=== PATIENT | female | born 1985 ===

== ENCOUNTER 2016-11-04 19:07 | Emergency (ER) | payer SELFPAY ==
--- NOTE | 2016-11-04 19:57 | UC ---
Jamil Multani SooYoung, scribed for Sathish Mistry MD on 11/04/16 at 1943 . Complaint Female HPI - HPI Summary HPI Summary: A 31 y/o F presents to E with c/o vaginal bleeding onset three hours ago. She states about 2 light pads worth. Associated sx: suprapubic abd pain onset earlier in the AM but then increasing in the afternoon; malaise; lower back pain. Denies dizziness. Pt had a positive home . First , not scheduled to see OB-SAFETY LEADER until November 14. LNMP was September 26. Denies PMHx. Non -smoker, non drinker. - History Of Current Complaint Chief Complaint: UCGU Stated Complaint: BLEEDING,CRAMPING,5 WEEKS PREG Time Seen by Provider: 11/04/16 19:41 Hx Obtained From: Patient, Family/Critical Care Unit Manager - Hx Last Menstrual Period: 09/26/16 ?: Yes Onset/Duration: Sudden Onset, Lasting Hours, Still Present Timing: Constant Severity Initially: Moderate Severity Currently: Moderate Pain Intensity: 5 Pain Scale Used: 0-10 Numeric Associated Signs And Symptoms: Positive: Back Pain - lower, Vaginal Bleeding/ Discharge - Allergies/Home Medications Allergies/Adverse Reactions: Allergies Allergy/AdvReac Type Severity Reaction Status Date / Time No Known Allergies Allergy Verified 11/04/16 19:33 Home Medications: Home Medications Ibuprofen [Midol] 11/04/16 [History] PMH/Surg Hx/FS Hx/Imm Hx Previously Healthy: No - NEG COPD, DENIES PMHX. - Surgical History Surgical History: Yes Surgery Procedure, Year, and Place: Varicose veins - Family History Known Family History: Positive: Cardiac Disease Negative: Hypertension, Diabetes - Social History Occupation: Unemployed Lives: With Family Alcohol Use: None Substance Use Type: None Smoking Status (MU): Never Smoked Tobacco Review of Systems Gastrointestinal: Abdominal Pain, Other - pos: vaginal bleeding Musculoskeletal: Other: - pos: lower back pain All Other Systems Reviewed And Are Negative: Yes Physical Exam Triage Information Reviewed: Yes Vital Signs: Initial Vital Signs Temp 99.1 F 11/04/16 19:29 Pulse 91 11/04/16 19:29 Resp 18 11/04/16 19:29 BP 126/83 11/04/16 19:29 Pulse Ox 100 06/02/17 19:29 Vital Signs Reviewed: Yes - Additional Comments The patient is well-nourished in no acute distress and in no acute pain. The skin is warm and dry and skin color reflects adequate perfusion. NOT DIAPHORETIC. HEENT: The head is normocephalic and atraumatic. The pupils are equal and reactive. The conjunctivae are clear and without drainage. Nares are patent and without drainage. Mouth reveals moist mucous membranes and the throat is without erythema and exudate. The external ears are intact. The ear canals are patent and without drainage. The tympanic membranes are intact. Neck is supple with full range of motion and non-tender. There are no carotid bruits. There is no neck vein distension. Respiratory: Chest is non-tender. Lungs are clear to auscultation and breath sounds are symmetrical and equal. Cardiovascular: Hear is regular rate and rhythm. There is no murmur or rub auscultated. There is no peripheral edema and pulses are symmetrical and equal. Abdomen: SUPRAPUBIC TENDERESS. The abdomen is soft. There are normal bowel sounds heard in all four quadrants and there is no organomegaly palpated. : VAGINAL BLEEDING. POSITIVE . Musculoskeletal: Extremities are non-tender with full range of motion. There is good capillary refill. There is no peripheral edema or calf tenderness elicited. Neurological: Patient is alert and oriented to person, place and time. The patient has symmetrical motor strength in all four extremities. Cranial nerves are grossly intact. Deep tendon reflexes are symmetrical and equal in all four extremities. Psychiatric: The patient has an appropriate affect and does not exhibit any anxiety or depression. Complaint Female Dx - Course Course Of Treatment: Pt medications reviewed during this visit. Pre- Hypertensive BP reading (121-139/81-89); patient referred to PCP for follow-up. - Differential Dx/Diagnosis Provider Diagnoses: vaginal bleeding. history of Discharge - Discharge Plan Condition: Stable Disposition: AGAINST MEDICAL ADVICE Additional Instructions: Your blood pressure reading today was 126/83, which is PRE-HYPERTENSIVE. Follow- up with your primary care provider within 4 weeks for blood pressure readings and further evaluation. If no PCP listed: Establish with a new primary care provider and follow-up within 4 weeks for blood pressure readings and further evaluation. If you cant find a provider, try to check your blood pressure on your own and see if its above 120/80. If so, follow up for further evaluation and treatment. The documentation as recorded by the Jamil campo SooYoung accurately reflects the service I personally performed and the decisions made by me, Sathish Mistry MD.
[2016-11-04 20:20] VITALS: BP 129/83
== END 2016-11-04 20:18 | disposition left against medical advice (07) ==
LOC: UCEAST 19:07
DX: O46.91 Antepartum hemorrhage, unspecified, first trimester (principal); Z3A.00 Weeks of gestation of pregnancy not specified; R03.0 Elevated blood-pressure reading, without diagnosis of hypertension
CPT/HCPCS: 84702; 99202; G0463

== ENCOUNTER → 2016-11-04 20:33 | Emergency (ER) | payer SELFPAY ==
[2016-11-04 21:30] LABS: Hematocrit 38 % (35-47); Mean Corpuscular HGB Conc 34 g/dl (31-36); Mean Corpuscular Hemoglobin 32 pg (27-31); Mean Corpuscular Volume 94 fL (80-97); Mean Platelet Volume 7 um3 (7.4-10.4); Red Blood Count 4.11 10^6/ul (4.0-5.4); Red Cell Distribution Width 13 % (10.5-15); White Blood Count 10.6 10^3/ul (3.5-10.8)
--- NOTE | 2016-11-04 22:16 | ED ---
- HPI Summary HPI Summary: Patient present with vaginal spotting and abdominal cramping that began today. She is 5 weeks and presented to [facility] where her urine was positive. She was referred to the ED for evaluation. This is her first . She denies back pain, urinary symptoms, constipation, N/V/D or fevers. - History of Current Complaint Chief Complaint: EDOBProblems Stated Complaint: 5 WKS PRG/BLEEDING Time Seen by Provider: 11/04/16 20:48 Hx Obtained From: Patient, Family/Aerobics Instructor Chief Complaint: Vaginal Bleeding Onset/Duration: Started Hours Ago, Atraumatic, Still Present Timing: Intermittent Severity: Moderate Current Severity: Moderate Pain Intensity: 5 Location of Pain: Suprapubic Character: Cramping Aggravating Factors: Nothing Alleviating Factors: Nothing Associated Signs and Symptoms: Positive: Vaginal Bleeding or Discharge - spotting - Assessment SAB: 0 IEA: 0 Hx Hysterectomy: No - Allergies/Home Medications Allergies/Adverse Reactions: Allergies Allergy/AdvReac Type Severity Reaction Status Date / Time No Known Allergies Allergy Verified 11/04/16 19:33 PMH/Surg Hx/FS Hx/Imm Hx Previously Healthy: Yes - Surgical History Surgery Procedure, Year, and Place: Varicose veins Infectious Disease History: No Infectious Disease History: Denies: Traveled Outside the [place] in Last 30 Days - Family History Known Family History: Positive: Cardiac Disease Negative: Hypertension, Diabetes - Social History Occupation: Employed Full-time Lives: With Family Alcohol Use: None Substance Use Type: Reports: None Smoking Status (MU): Never Smoked Tobacco Review of Systems Positive: Abdominal Pain Positive: discharge - blood spotting All Other Systems Reviewed And Are Negative: Yes Physical Exam - Physical Exam Triage Information Reviewed: Yes Vital Signs Reviewed: Yes Appearance: Positive: Well-Appearing, No Pain Distress, Well-Nourished Skin: Positive: Warm, Skin Color Reflects Adequate Perfusion, Dry, Soft Head/Face: Positive: Normal Head/Face Inspection Eyes: Positive: EOMI, MAUREEN, Conjunctiva Clear ENT: Positive: Hearing grossly normal Respiratory/Lung Sounds: Positive: Clear to Auscultation, Breath Sounds Present Cardiovascular: Positive: RRR Abdomen Description: Positive: Nontender, Soft. Negative: CVA Tenderness (R), CVA Tenderness (L), Distended, Guarding Bowel Sounds: Positive: Present Musculoskeletal: Negative: Edema Left, Edema Right Neurological: Positive: Sensory/Motor Intact, Alert, Oriented to Person Place, Time, NV Bundle Intact Distally, Normal Gait Psychiatric: Positive: Affect/Mood Appropriate AVPU Assessment: Alert Diagnostics - Vital Signs Vital Signs Temp Pulse Resp BP Pulse Ox 11/04/16 20:54 86 100 11/04/16 20:53 98.5 F 77 20 115/72 77 11/04/16 20:34 98 F 88 18 115/80 100 - Laboratory Lab Results: Lab Results 11/04/16 11/04/16 11/04/16 Range/Units 21:10 21:10 21:10 WBC 10.6 (3.5-10.8) 10^3/ul RBC 4.11 (4.0-5.4) 10^6/ul Hgb 13.0 (12.0-16.0) g/dl Hct 38 (35-47) % MCV 94 (80-97) fL MCH 32 H (27-31) pg MCHC 34 (31-36) g/dl RDW 13 (10.5-15) % Plt Count 273 (150-450) 10^3/ul MPV 7 L (7.4-10.4) um3 Neut % (Auto) 70.3 (38-83) % Lymph % (Auto) 19.7 L (25-47) % Grundy % (Auto) 9.9 H (1-9) % Eos % (Auto) 0 (0-6) % Baso % (Auto) 0.1 (0-2) % Absolute Neuts (auto) 7.4 (1.5-7.7) 10^3/ul Absolute Lymphs (auto) 2.1 (1.0-4.8) 10^3/ul Absolute Monos (auto) 1.0 H (0-0.8) 10^3/ul Absolute Eos (auto) 0 (0-0.6) 10^3/ul Absolute Basos (auto) 0 (0-0.2) 10^3/ul Absolute Nucleated RBC 0.01 10^3/ul Nucleated RBC % 0 Beta HCG, Quant 173.98 mIU/mL Blood Type A Positive Result Diagrams: 11/04/16 21:10 Lab Statement: Any lab studies that have been ordered have been reviewed, and results considered in the medical decision making process. - Ultrasound No standard instances Ultrasound Interpretation: Positive (See Comments) Ultrasound Interpretation Completed By: Radiologist - no intrauterine Course/Dx - Differential Diagnosis/HQI/PQRI: Incomplete , Missed , Spontaneous , Threatened , Ectopic , Pre-term Labor, Retained Products of Conception, Vaginal Bleeding - Diagnoses Provider Diagnoses: Vaginal bleeding in patient at less than 20 weeks gestation - Provider Notifications Discussed Care Of Patient With: Dr. Vasquez Time Discussed With Above Provider: 23:20 Instructed by Provider To: Have Pt Call For Appt. Discharge - Discharge Plan Condition: Stable Disposition: HOME Patient Education Materials: First Trimester Vaginal Bleed (ED) Referrals: Hector Ivy MD [Medical Doctor] - Additional Instructions: Please call Dr. Ivy's office Monday morning to discuss today's findings and to get repeat labs draw. Return to the emergency department if symptoms worsen.
--- NOTE | 2016-11-04 23:01 | RAD ---
HISTORY: Vaginal bleeding, COMPARISONS: None TECHNIQUE: Multiple transverse and longitudinal ultrasound images were obtained of the pelvis using grayscale and color Doppler imaging using the endovaginal transducer. FINDINGS: UTERUS: The uterus is normal in shape, size, contour, and echotexture. ENDOMETRIUM: The endometrium is heterogeneous. No intrauterine gestation is identified.. The endometrium measures 1.3 cm in thickness. CUL-DE-SAC: There is no free fluid within the cul-de-sac. RIGHT OVARY: The right ovary measures 1.9 x 2.3 x 2.4 cm. LEFT OVARY: The left ovary measures 2.3 x 2.6 x 2.2 cm. There is a minimally complicated left ovarian cyst measuring 1.4 cm, without hyperemia. BLADDER: The bladder is not well visualized. IMPRESSION: 1. NO INTRAUTERINE GESTATION IS IDENTIFIED. THE DIFFERENTIAL INCLUDES MISSED , EARLY INTRAUTERINE GESTATION, OR ECTOPIC . RECOMMEND CORRELATION WITH SERIAL BETA-HCG LEVELS AND FOLLOW-UP EXAMINATION. 2. MINIMALLY COMPLICATED LEFT OVARIAN CYST. 3. HETEROGENEOUS ENDOMETRIUM
[2016-11-04 23:34] VITALS: BP 104/68
== END | disposition home or self-care (01) ==
LOC: ED 20:33
DX: O46.91 Antepartum hemorrhage, unspecified, first trimester (principal); Z3A.01 Less than 8 weeks gestation of pregnancy
CPT/HCPCS: 36415; 76817; 84702; 85025; 86900; 86901; 99283

== ENCOUNTER 2017-11-07 06:02 | Inpatient (IN) | payer OTHER ==
--- NOTE | 2017-11-06 17:11 | HP ---
General Information - General Information Maternal Age: 32 Grav: 2 Para: 0 SAB: 1 IEA: 0 Estimated Due Date: 11/06/17 Determined By: LMP Gestational Age in Weeks and Days: 40 Weeks and 0 Days Maternal Blood Type and Rh: A Positive - Results this Serology/RPR Result: Non-Reactive Rubella Result: Immune HBsAg Result: Negative HIV Result: Negative GBS Culture Result: Negative Past Medical History Delivery History: See Records Pertinent Past Medical History: See Records Past Medical History Comment: Migraine Headaches Pertinent Past Surgical History: None Pertinent Family History: See Records - Antepartal Records Antepartal Records: Reviewed, Complicated by: - Persisitent Breech presentation Review of Systems Constitutional: Comfortable CV Complaint: No Respiratory: Shortness of Breath: No Gastrointestinal: No Nausea/Vomiting, Normal Bowel Movement Genitourinary: No Dysuria, No Bleeding, No Leaking Fluid Musculoskeletal: No Complaint Neurological: No Headache, No Visual Changes Movement: Normal Exam Allergies/Adverse Reactions: Allergies No Known Allergies Allergy (Verified 11/04/16 19:33) Temp 98.6 P-72 BP 110/60 RR 18 - Measurements Height: 5 ft Weight: 147 lb Weight in lbs: 147 Body Mass Index (BMI): 28.7 Pre- Weight: 105 lb Weight Gained This : 42 lbs and 0 ozs - Exam Abdomen: No Upper Quadrant Pain Breast: Breast Exam Deferred CVA: No CVA Tenderness Extremities: No Edema Heart: Normal Rhythm/Heart Sounds HEENT: No Significant Findings Lungs: Clear Bilaterally Rectal: Rectal Exam Deferred Reflexes: DTR 2+ Thyroid: No Thyromegaly - Abdominal Exam Abdomen Exam: Non-Tender, Fundal Height Consistent with Dates - Ultrasound/Biophysical Profile Ultrasound Status: Not Done Targeted Exam Findings See L&D Outpatient Visit Provider Note for Findings: N/A Cervical Exam: Closed Effacement: <50% Station: -2 Presenting Part: Breech Membrane Status: Intact Bleeding/Discharge: None EFM Findings - External Monitor Findings Baseline Heart Rate: 130 Contractions: None Assessment/Plan - Reason for Visit Reason for Visit: at term with persistent Breech presentation to be delivered by Section. - Plan Plan: IV Hydration, Expedite C/S Delivery, Antibiotic Prophylaxis
[~2017-11-07 06:02] MED LIST: Buffered Lidocaine 0.9% SYRIN* 5 ML/SYR SYRINGE INTRADERM ONE; Famotidine IV* 10 MG/ML 2 ML (20 mg) IV ONE; Sodium Citrate/Citric Acid* 15 ML UDC PO ONE
[2017-11-07] MEDS ORDERED: OXYTOCIN* 10 UNITS/ML 1 ML VIAL ONE (07:28)
[2017-11-07] MEDS ORDERED: Bupivacaine-MPF SPINAL* 7.5 MG/2 ML AMP ONE (07:28)
[2017-11-07] MEDS ORDERED: ceFOXitin 2 GM IVPREMIX* 2 GM/50 ML BAG IVPB ONE (07:30)
[2017-11-07] MEDS ORDERED: Morphine PF AMP (0.5MG/ML)* 5 MG/10 ML AMP ONE (07:30)
[2017-11-07] MEDS ORDERED: Sodium Citrate/Citric Acid* 15 ML UDC PO ONE (07:30)
[2017-11-07] MEDS ORDERED: Lidocaine 2% PF * 5 ML VIAL ONE (07:31)
[2017-11-07] MEDS ORDERED: Dexamethasone IV* 4 MG/ML 1 ML (4 MG) ONE (09:13)
[2017-11-07] MEDS ORDERED: Phenylephrine IV* 40 MCG/ML 10 ML SYRINGE ONE (09:13)
[2017-11-07] MEDS ORDERED: Famotidine IV* 10 MG/ML 2 ML (20 mg) ONE (09:13)
[2017-11-07] MEDS ORDERED: EPHEDrine (Pressors)* 50 MG/ML VIAL ONE (09:13)
[2017-11-07] MEDS ORDERED: PROCHLORPERAZINE INJ 5 MG/ML 2 ML VIAL ONE (09:13)
[2017-11-07] MEDS ORDERED: Witch Hazel PAD* JAR TOPICAL PRN (09:35)
[2017-11-07] MEDS ORDERED: oxyCODONE/Acetamin 5/325 MG* TAB PO PRN ×3 (09:35→09:39)
[2017-11-07] MEDS ORDERED: Dibucaine 1% 28.35 GM TUBE PR PRN (09:35)
[2017-11-07] MEDS ORDERED: Zolpidem TAB* 5 MG PO PRN (09:35)
[2017-11-07] MEDS ORDERED: Acetaminophen TAB* 325 MG PO PRN (09:35)
[2017-11-07] MEDS ORDERED: Ibuprofen TAB* 600 MG PO PRN (09:35)
[2017-11-07] MEDS ORDERED: Glycerin ADULT SUPP PR PRN (09:35)
[2017-11-07] MEDS ORDERED: Nalbuphine* 20 MG/ML 1 ML VIAL IV PRN ×2 (09:39)
[2017-11-07] MEDS ORDERED: DiMENhydriNATE IV* 50 MG/ML VIAL IV PUSH PRN (09:39)
[2017-11-07] MEDS ORDERED: Naloxone* 0.4 MG/ML 1 ML VIAL IV PRN ×2 (09:39)
[2017-11-07] MEDS ORDERED: Scopolamine 1.5 mg* PATCH TRANSDERM PRN (09:39)
[2017-11-07] MEDS ORDERED: fentaNYL* 50 MCG/ML 2 ML VIAL (100 MCG VIAL) IV PRN (09:39)
[2017-11-07] MEDS ORDERED: Ondansetron 40 MG VIAL* 2 MG/ML 20 ML VIAL IV PRN (09:39)
[2017-11-07] MEDS ORDERED: PROCHLORPERAZINE INJ 5 MG/ML 2 ML VIAL IV PRN (09:39)
[2017-11-07] MEDS: Ketorolac INJ* 30 MG/ML 1 ML VIAL IV SCH ×2 (10:23→18:36)
--- NOTE | 2017-11-07 11:57 | PTEDU ---
Patient Name: CYNDIE HOWE CYNDIE HOWE selected video: BBOB: Nurturing Your Gorgeous &Growing Baby by to view on 11/07/2017 at 11:56:13 AM from [id number]
--- NOTE | 2017-11-07 14:47 | PTEDU ---
Patient Name: CYNDIE HOWE CYNDIE HOWE selected video: Follow Me Mum: The Mccrary to Successful to view on 11/07/2017 at 2:47:23 PM from [email or web address]
[2017-11-07] MEDS ORDERED: Ondansetron SYRINGE* 4 MG/2 ML SYRINGE (from 40mg/20ml vial) IV ONE (15:00)
[2017-11-07] MEDS: Simethicone TAB* 80 MG TAB.CHEW PO SCH ×2 (18:37→21:10)
[2017-11-07] MEDS: Docusate CAP* 100 MG PO SCH (21:10)
[2017-11-07] MEDS: Acetaminophen TAB* 325 MG PO SCH (21:10)
[2017-11-08] MEDS ORDERED: oxyCODONE/Acetamin 5/325 MG* TAB PO PRN
[2017-11-08] MEDS: Ketorolac INJ* 30 MG/ML 1 ML VIAL IV SCH (02:07)
[2017-11-08] MEDS: Acetaminophen TAB* 325 MG PO SCH (02:08)
[2017-11-08] MEDS ORDERED: Ibuprofen TAB* 600 MG PO PRN (08:00)
[2017-11-08 08:39] LABS: ABS Basophils 0 10^3/ul (0-0.2); ABS Eosinophils 0 10^3/ul (0-0.6); ABS Lymphocytes 1.3 10^3/ul (1.0-4.8); ABS Monocytes 0.9 10^3/ul (0-0.8); ABS Neutrophils 12.1 10^3/ul (1.5-7.7); ABS Nucleated RBC 0 10^3/ul; Eosinophil % 0.3 % (0-6); Hematocrit 32 % (35-47); Hemoglobin 10.6 g/dl (12.0-16.0); Lymphocyte % 9.1 % (25-47); Mean Corpuscular HGB Conc 33 g/dl (31-36); Mean Corpuscular Hemoglobin 31 pg (27-31); Mean Corpuscular Volume 93 fL (80-97); Mean Platelet Volume 6.5 um3 (7.4-10.4); Nucleated Red Blood Cells % 0; Platelet Count 242 10^3/ul (150-450); Red Blood Count 3.44 10^6/ul (4.0-5.4); Red Cell Distribution Width 16 % (10.5-15); White Blood Count 14.3 10^3/ul (3.5-10.8)
[2017-11-08] MEDS ORDERED: Ferrous Gluconate TAB* 324 MG TAB PO SCH (09:00)
[2017-11-08] MEDS: Simethicone TAB* 80 MG TAB.CHEW PO SCH ×3 (09:20→22:17)
[2017-11-08] MEDS: Acetaminophen TAB* 325 MG PO PRN ×2 (09:20→22:16)
[2017-11-08] MEDS: Ibuprofen TAB* 600 MG PO PRN ×3 (09:20→22:16)
[2017-11-08] MEDS: Docusate CAP* 100 MG PO SCH ×3 (09:20→22:17)
--- NOTE | 2017-11-08 12:33 | PTEDU ---
Patient Name: CYNDIE HOWE SUNG JACKSONCYNDIE selected video: Never Ever Shake a Baby to view on 11/08/2017 at 12:32:45 PM from [email or web address]
--- NOTE | 2017-11-08 13:51 | OP ---
CC: Wiley Barajas MD * DATE OF OPERATION: 11/07/17 - ROOM #116 DATE OF : 81 SURGEON: Hector Ivy MD GRATED CHEESE MAKER: Wiley Barajas MD and Susanna Lemus, certified nurse field spec. ANESTHESIA: Spinal. PRE-OP DIAGNOSIS: Intrauterine 40 weeks and breech presentation. POST-OP DIAGNOSIS: Intrauterine 40 weeks and breech presentation. OPERATIVE PROCEDURE: Primary low transverse section and breech extraction. ESTIMATED BLOOD LOSS: 600 cc. SPECIMEN SENT TO PATHOLOGY: Cord blood. FLUIDS: She received 2400 cc of IV crystalloid fluid. Her urine output was 400 cc of clear urine. FINDINGS: A very viable male in shakira breech presentation delivered via breech extraction during over clear fluid with a weight of 7 pounds 14 ounces, Apgars of 9 and 9. The placenta was grossly intact with a 3-vessel cord noted. The uterus, adnexa, bowel and bladder were within normal limits and there were no complications. DESCRIPTION OF PROCEDURE: The patient was taken to the operating room where she was identified. She was placed on the operating table where a spinal anesthetic was obtained without difficulty. She was placed in the supine position with a leftward tilt, prepped and draped in a normal sterile fashion. A Pfannenstiel skin incision was made with a knife and carried through to the underlying layer of fascia. The fascia was nicked in the midline and extended laterally with curved Joseph scissors. The fascia was grasped superiorly and inferiorly with Vicki clamps and dissected off sharply from the rectus muscle. The rectus muscle was in the midline bluntly. The peritoneum was identified, grasped with pickups, entered sharply with Metzenbaum scissors and extended superiorly and inferiorly sharply. A bladder blade was then inserted into patient's abdomen. A bladder flap was created using Metzenbaum scissors over which the bladder blade was then reinserted. A low transverse incision was made with a knife and extended laterally with bandage scissors. The amniotic sac was ruptured. The 's body was then grasped and the baby was delivered via breech extraction without any complications. The cord was clamped and cut. The was handed off to awaiting obstetric anaesthetist. Cord bloods were obtained. The placenta was removed manually. The uterus was then exteriorized cleared of all clot and debris using moist laparotomy sponges. The uterine incision was then closed using 0 Polysorb suture in running locked fashion with a second imbricating layer of 0 Polysorb suture with good hemostasis noted. The uterus was returned to the patient's abdomen. The gutters were then cleared of clots and debris using moist laparotomy sponges. All the sponges were removed from the patient's abdomen. The peritoneum was then closed using 3-0 Polysorb suture in a running fashion. The fascia was closed using 0 Polysorb suture in a running fashion and the skin was closed with a 4-0 Monocryl subcuticular stitch. The patient tolerated the procedure well. Sponge, lap, needle counts were correct x2. She was then transferred to recovery room area in stable condition. [id number]/[facility] #: [id number] RAHEEM
[2017-11-08] MEDS: oxyCODONE/Acetamin 5/325 MG* TAB PO PRN (14:35)
[2017-11-09] MEDS: Acetaminophen TAB* 325 MG PO PRN (06:06)
[2017-11-09] MEDS: Ibuprofen TAB* 600 MG PO PRN ×4 (06:06→23:57)
--- NOTE | 2017-11-09 09:05 | PTEDU ---
Patient Name: CYNDIE HOWE CYNDIE HOWE selected video: Follow Me Mum: The Mccrary to Successful to view on 11/09/2017 at 9:05:10 AM [email or web address]
[2017-11-09] MEDS: Docusate CAP* 100 MG PO SCH ×3 (09:16→19:48)
[2017-11-09] MEDS: Simethicone TAB* 80 MG TAB.CHEW PO SCH ×3 (09:16→18:03)
--- NOTE | 2017-11-09 09:27 | PTEDU ---
Patient Name: CYNDIE HOWE CYNDIE HOWE selected video: Follow Me Mum: The Mccrary to Successful to view on 11/09/2017 at 9:26:35 AM [email or web address]
[2017-11-09] MEDS: oxyCODONE/Acetamin 5/325 MG* TAB PO PRN ×3 (14:31→23:56)
[2017-11-10] MEDS: Ibuprofen TAB* 600 MG PO PRN ×2 (05:24→11:37)
[2017-11-10] MEDS: oxyCODONE/Acetamin 5/325 MG* TAB PO PRN ×2 (05:24→11:37)
[2017-11-10 07:38] VITALS: BP 104/63
[2017-11-10] MEDS ORDERED: Scopolamine PATCH Remove* 1 NOTE MISC PATCH OFF PRN (09:40)
[2017-11-10] MEDS: Simethicone TAB* 80 MG TAB.CHEW PO SCH (10:11)
[2017-11-10] MEDS: Docusate CAP* 100 MG PO SCH (10:11)
--- NOTE | 2017-11-10 11:16 | PTEDU ---
Patient Name: CYNDIE HOWE CYNDIE HOWE selected video: BBOB: Bonding Through Massage to view on 11/10/2017 at 11:15:10 AM from [email or web address]
== END 2017-11-10 12:43 | disposition home or self-care (01) | DRG 766 ==
LOC: MCHOB 06:02
PROVIDERS: ADMIT Obstetrics & Gynecology; ATTEND Obstetrics & Gynecology
PROC: 10D00Z1 Extraction of Products of Conception, Low, Open Approach (ICD-10-PCS; 2017-11-07)
PROC: 4A1HXCZ Monitoring of Products of Conception, Cardiac Rate, External Approach (ICD-10-PCS; principal; 2017-11-07 07:45)
DX: O32.1XX0 Maternal care for breech presentation, not applicable or unspecified (principal); O48.0 Post-term pregnancy; Z37.0 Single live birth; Z3A.40 40 weeks gestation of pregnancy
CPT/HCPCS: 36415; 85025; A9270-GY; J0694; J0780; J1100; J1885; J2300; J2405; J2590